=== PATIENT | male | born 1970 | race Hispanic/Latino ===

== ENCOUNTER 2024-08-04 10:57 | Emergency (ER) | payer BC ==
[~2024-08-04] VITALS: Ht 157.5 cm; Wt 90.3 kg
[2024-08-04 11:00] VITALS: PULSE 112; RESP 20; TEMP 97.2
[2024-08-04] MEDS: ONDANSETRON HCL INJ 2MG/ML 2ML 2 MG/ML VIAL IV STA (11:31)
[2024-08-04] MEDS: FAMOTIDINE 20 MG/2 ML VIAL IV STA (11:31)
[2024-08-04] MEDS: SODIUM CHLORIDE 0.9% 1000ML 1,000 ML IV ONE (11:31)
[2024-08-04] MEDS ORDERED: SERTRALINE HCL100 MG PO (11:33)
[2024-08-04] MEDS ORDERED: PHENTERMINE H37.5 M1 (11:33)
[2024-08-04] MEDS ORDERED: OMEPRAZOLE40 MG PO (11:33)
[2024-08-04] MEDS ORDERED: FENOFIBRATE160 MG (11:33)
[2024-08-04] MEDS ORDERED: REXULTI1 MG (11:33)
[2024-08-04] MEDS ORDERED: ONDANSETRON ODT4 MG PO (12:27)
[2024-08-04 12:52] VITALS: BP 139/81; PULSE 96; RESP 16; TEMP 98; O2SAT 97
== END 2024-08-04 12:45 | disposition home or self-care (01) ==
LOC: FSED 10:59
DX: R11.2 Nausea with vomiting, unspecified (principal); E86.0 Dehydration; K57.90 Diverticulosis of intestine, part unspecified, without perforation or abscess without bleeding; R42 Dizziness and giddiness; R10.30 Lower abdominal pain, unspecified; K44.9 Diaphragmatic hernia without obstruction or gangrene; K76.0 Fatty (change of) liver, not elsewhere classified; E78.5 Hyperlipidemia, unspecified; K21.9 Gastro-esophageal reflux disease without esophagitis; R94.31 Abnormal electrocardiogram [ECG] [EKG]
CPT/HCPCS: 74176; 80048; 80076; 85025; 96374; 96375; 99283; J2405; J7030; 93005